=== PATIENT | male | born 1955 | race Caucasian/White ===

== ENCOUNTER 2021-06-28 10:19 | Observation (INO) | payer OTHER ==
[2021-06-28 11:00] LABS: #Basophils 0.1 10x3/uL (0.0-0.2); #Eosinphils 0.1 10x3/uL (0.0-0.5); #Monocytes 1.1 10x3/uL (0.0-1.1); #Neutrophils 13.4 10x3/uL (1.5-8.4); %Basophils 0.4 % (0.0-2.0); %Eosinophils 0.4 % (0.0-6.0); %Lymphocytes 9.9 % (18.0-47.0); %Monocytes 6.6 % (0.0-10.0); %Neutrophils 82.2 % (40.0-75.0); Hemoglobin 16.1 g/dL (13.5-17.5); Mean Corpuscular HGB CONC 34.4 g/dL (32.0-36.0); Mean Corpuscular Hemoglobin 31.1 pg (27.0-33.0); Mean Corpuscular Volume 90.5 fl (81.2-95.1); Mean Platelet Volume 9.9 fl (7.4-10.4); Platelet Count 210 10x3/uL (150-450); RBC Distribution Width 12.1 % (11.5-14.5); Red Blood Cell (RBC) Count 5.17 10x6/uL (4.32-5.72); White Blood Cell (WBC) Count 16.3 10x3/uL (3.5-10.5)
[2021-06-28 11:09] LABS: ALT (SGPT) 36 U/L (8-55); AST (SGOT) 24 U/L (5-34); Albumin 4.3 g/dL (3.4-4.8); Alkaline Phosphatase 81 U/L (40-110); Anion Gap 13 mmol/L (10-20); BUN (Urea Nitrogen) 19 mg/dL (8.4-25.7); Bilirubin, Total 0.6 mg/dL (0.2-1.2); Calc. Creatinine Clearance 0 mL/min (70-130); Calcium 8.7 mg/dL (7.8-10.44); Carbon Dioxide 22 mmol/L (23-31); Chloride 108 mmol/L (98-107); Globulin 2.6 g/dL (2.4-3.5); Glucose 101 mg/dL (80-115); Potassium 4.3 mmol/L (3.5-5.1); Protein, Total 6.9 g/dL (5.8-8.1); Sodium 139 mmol/L (136-145)
[2021-06-28 12:30] LABS: SARS-CoV-2 NAA Rapid Test Not Detected (NotDetected)
[2021-06-28 12:41] LABS: Bilirubin Neg (Negative); Blood, Urine Negative (Negative); Clarity Clear (Clear); Glucose, Urine (Dipstick) Normal (Negative); Ketone, Urine Negative (Negative); Leukocyte Negative (Negative); Nitrite Negative (Negative); Protein, Urine (Dipstick) Negative (Neg-Trace); Urobilinogen Normal mg/dL (Less than 2)
[2021-06-28] MEDS ORDERED: Aspirin 325 MG TAB ONE (13:31)
[2021-06-28] MEDS ORDERED: hydrALAZINE 20 MG/ML VIAL SLOW IVP PRN (15:07)
[2021-06-28 17:37] VITALS: BMI 28.1
[2021-06-28] MEDS ORDERED: Clopidogrel Bisulfate 75 MG TAB PO SCH (18:00)
[2021-06-28] MEDS ORDERED: FLU VACC QS2021-22(6MOS UP)/PF 60 MCG/0.5 ML SYRINGE IM ONE (19:15)
[2021-06-28] MEDS: Sodium Chloride 0.9% 1,000 ML IV SCH (20:49)
[2021-06-28] MEDS ORDERED: Atorvastatin Calcium 40 MG TAB PO SCH (21:00)
[2021-06-29 05:07] LABS: Cardiac Risk 3.4 (Less than 4.5)
[2021-06-29] MEDS ORDERED: Enoxaparin Sodium 30 MG/0.3 ML SYRINGE SC SCH (09:00)
[2021-06-29] MEDS: Clopidogrel Bisulfate 75 MG TAB PO SCH (10:34)
[2021-06-29] MEDS: Aspirin 81 mg Enteric Coated Tablet PO SCH (10:34)
[2021-06-29] MEDS: Sodium Chloride 0.9% 1,000 ML IV SCH ×2 (13:03→22:00)
[2021-06-29] MEDS ORDERED: Carbidopa/Levodopa CR 50-200 mg Tablet PO SCH (21:00)
[2021-06-29] MEDS ORDERED: rOPINIRole HCl 1 MG TAB PO SCH (21:00)
[2021-06-29] MEDS: Carbidopa/Levodopa 25-100 mg Tablet PO SCH (21:52)
[2021-06-30] MEDS ORDERED: Lisinopril 10 MG TAB PO SCH (09:00)
[2021-06-30] MEDS ORDERED: Atorvastatin Calcium 40 MG TAB PO SCH (09:00)
[2021-06-30] MEDS ORDERED: Enoxaparin Sodium 40 MG/0.4 ML SYRINGE SC SCH (09:00)
[2021-06-30 09:25] VITALS: BP 138/74; TEMP 98.3
[2021-06-30] MEDS: Clopidogrel Bisulfate 75 MG TAB PO SCH (09:36)
[2021-06-30] MEDS: Aspirin 81 mg Enteric Coated Tablet PO SCH (09:36)
[2021-06-30] MEDS: Carbidopa/Levodopa 25-100 mg Tablet PO SCH (09:36)
== END 2021-06-30 13:10 | disposition home or self-care (01) ==
LOC: CSHERS 10:19 → SUATTDRO 10:19 → CSHTELE 13:23 → INTOOBSV 13:23 → CSHTELE 16:13 → UNDOADMIN 16:13
PROVIDERS: ADMIT Family Medicine; ATTEND Hospitalist
DX: G45.9 Transient cerebral ischemic attack, unspecified (principal); I25.10 Atherosclerotic heart disease of native coronary artery without angina pectoris; E78.5 Hyperlipidemia, unspecified; I10 Essential (primary) hypertension; G20 Parkinson's disease; Z79.899 Other long term (current) drug therapy; N17.9 Acute kidney failure, unspecified; Z95.5 Presence of coronary angioplasty implant and graft; Z20.822 Contact with and (suspected) exposure to COVID-19
CPT/HCPCS: 0240U; 70450; 70496; 70498; 70551; 80053; 80061; 81003; 84484; 85025; 93005; 93306; 96372; G0378; J1650; J7050